=== PATIENT | male | born 1990 ===

== ENCOUNTER 2020-04-01 11:09 | Emergency (ER) | payer SELFPAY ==
[~2020-04-01] VITALS: Ht 182.9 cm; Wt 80.1 kg
[2020-04-01] MEDS ORDERED: LORazepam 2 MG/ML, 1ML IVPush ONE (12:00)
[2020-04-01] MEDS ORDERED: SODIUM CHLORIDE 0.9% 1,000ML IVBOLUS ONE (12:00)
[2020-04-01] MEDS ORDERED: ONDANSETRON 2MG/ML, 2ML IVPush ONE (12:00)
[2020-04-01 12:04] LABS: PH, VENOUS 7.424 pH (7.320-7.420)
[2020-04-01] MEDS ORDERED: ONDANSETRON 2MG/ML, 2ML ONE (12:04)
[2020-04-01] MEDS ORDERED: LORazepam 2 MG/ML, 1ML ONE (12:04)
[2020-04-01 12:07] LABS: BASOPHILS % (AUTO) 0 % (0-1); EOSINOPHILS % (AUTO) 0 % (1-7); LYMPHOCYTES % (AUTO) 8 % (22-44); MEAN CORPUSCULAR HEMOGLOBIN 29.3 pg (27.5-34.5); MEAN CORPUSCULAR HGB CONC 34.3 g/dL (33.2-36.2); MEAN PLATELET VOLUME 7.8 fL (7.4-10.4); MONOCYTES % (AUTO) 12 % (2-9); NEUTROPHILS % (AUTO) 80 % (42-75); PLATELET COUNT 300 x10^3/uL (130-400); RED BLOOD COUNT 5.32 x10^6/uL (4.38-5.82); RED CELL DISTRIBUTION WIDTH 12.7 % (9.4-14.8)
--- NOTE | 2020-04-01 12:14 | NUR ---
TASK RN: PT EXTREMELY PARANOID, TONE OF VOICE AGGRESSIVE. PT COOPERATIVE W/ TESTS AFTER EDUCATION. PIV STARTED, 2ND SET OF BLOOD CULTURES DRAWN, LAB IN ROOM FOR 1ST. 1ST L OF 2L NS BOLUS STARTED. PT MEDICATED PER EMAR. VS MONITORING REPLACED ON PT, VS UPDATED. PT TACHYCARDIC, OTHER VS WDL.
[2020-04-01 12:17] LABS: ALANINE AMINOTRANSFERASE 50 U/L (12-78); ANION GAP 12 mmol/L (5-15); CALCIUM 9.5 mg/dL (8.5-10.1); CHLORIDE 94 mmol/L (98-107); CREATININE 1.53 mg/dL (0.7-1.3)
[2020-04-01 12:20] LABS: ALKALINE PHOSPHATASE 110 U/L (45-117); BILIRUBIN,TOTAL 1.8 mg/dL (0.2-1.0); TOTAL PROTEIN 8.3 g/dL (6.4-8.2)
[2020-04-01 12:32] LABS: MD SCAN
--- NOTE | 2020-04-01 12:36 | NUR ---
UPON ENTERING ROOM ON MULTIPLE OCCASIONS PT ACCUSES THIS RN OF "TALKING MERCED." PT REASSURED THAT NOBODY IS SPEAKING ABOUT HIM. PT STATES "BULLSHIT MAN I HEARD YOU TALK SHIT. WHAT DO YOU THINK SOMEONE JUST IMPLANTED YOUR VOICE INTO MY HEAD." PT REDIRECTED AND EDUCATED THAT THIS ACCUSATORY BEHAVIOR IS NOT WELCOMED AND IF IT CONTINUES HE WILL BE ASKED TO LEAVE. PT EDUCATED THAT IT IS NOT OK TO MAKE THIS A HOSTILE ENVIRONMENT WITH THREATS. PT AGAIN APOLOGIZES, THIS RN OFFERS TO TURN ON TV AND CLOSE THE ROOM DOOR SO PT CAN HAVE PRIVACY AND PT DECLINES. Addendum: 04/01/20 at 1243 by DALILA "TAKING SHIT"
--- NOTE | 2020-04-01 12:53 | NUR ---
BEDSIDE REPORT RECEIVED FROM BEV JOHNSON FOR TRANSFER OF PATIENT CARE.
--- NOTE | 2020-04-01 12:58 | NUR ---
FIRST CONTACT WITH PATIENT: PATIENT LAYING IN GURNEY TALKING TO SELF, PATIENT TACHYCARDIC, OTHER VSS. PATIENT PROVIDED URINAL FOR URINE SAMPLE.
--- NOTE | 2020-04-01 13:09 | NUR ---
ERMD AT BEDSIDE TO DISCUSS POC, PATIENT STATING "I NEED TO BE TESTED FOR POISON, YOU GUYS KEEP JUDGING ME, GO AHEAD HAND FORMER HELPER ME, I'LL GO GET HELP FROM [facility]." URINE SAMPLE COLLECTED AND SENT TO LAB.
--- NOTE | 2020-04-01 13:09 | NUR ---
[facility] decker in [facility] - 04/01/20 at 1310 by [email or web address] SPOKE WITH SHAHZAD ABOUT ORDERING LACTIC BLOOD TEST, SHAHZAD DOES NOT WISH TO ORDER THAT TEST AT THIS TIME DUE TO PATIENT'S NORMAL pH LEVEL.
--- NOTE | 2020-04-01 13:10 | NUR ---
SPOKE WITH SHAHZAD ABOUT ORDERING LACTIC BLOOD TEST, SHAHZAD DOES NOT WISH TO ORDER THAT TEST AT THIS TIME.
[2020-04-01 13:55] VITALS: BP 116/67
--- NOTE | 2020-04-01 14:00 | NUR ---
Patient given discharge instructions and prescription, tried educating patient on medication and discharge instructions, patient kept interrupting this RN and stating "this is fucked up, don't touch me." placed patient's discharge paperwork, and prescription in patient's black bag. This RN asked patient if he would like to keep his old insulin pens, patient states "no, throw those away they are used." Insulin pens deposited in sharps container. This RN and application technical designer helped patient dress, all patient belongings taken with patient. Patient ambulatory with steady gait from ED.
[2020-04-01 14:12] LABS: AMPHETAMINE SCREEN, URINE Positive (Negative); BARBITURATE SCREEN, URINE Negative (Negative); BENZODIAZEPINE SCREEN, URINE Negative (Negative); CANNABINOID SCREEN, URINE Negative (Negative); COCAINE SCREEN, URINE Negative (Negative); METHADONE SCREEN, URINE Negative (Negative); OPIATE SCREEN, URINE Positive (Negative)
== END 2020-04-01 14:01 | disposition home or self-care (01) ==
LOC: EDSEX 11:09 → ED 13:57
DX: E11.65 Type 2 diabetes mellitus with hyperglycemia (principal); F15.10 Other stimulant abuse, uncomplicated; R11.2 Nausea with vomiting, unspecified
CPT/HCPCS: 36415; 71045; 80053; 80307; 80320; 82803; 83690; 83735; 84100; 85025; 87040; 96361; 96374; 96375; 99284; J2060; J2405; J7030; G0480